=== PATIENT | female | born 1985 | race Caucasian/White ===

== ENCOUNTER 2019-12-08 10:25 | Emergency (ER) | payer OTHER ==
[~2019-12-08] VITALS: Ht 167.6 cm; Wt 72.2 kg
[2019-12-08 10:41] VITALS: BP 116/74
--- NOTE | 2019-12-08 10:55 | PHYS DOC ---
Past History Past Medical History: No Pertinent History Past Surgical History: Tonsillectomy, Other Additional Past Surgical Histo: nasal sx in august Smoking: Non-smoker Alcohol Use: None Drug Use: None General Adult EDM: Chief Complaint: SORE THROAT HPI: HPI: 34 year old female presents with 1 week history of URI symptoms including right ear pain, sore throat and "low grade fever". Denies known sick contacts. Reports history or prior tonsillectomy. Denies . Denies known exposure to COVID-19. Review of Systems: Review of Systems: Constitutional: Reports fever, chills, and generalized malaise Eyes: Denies redness or eye pain HENT: Denies nasal congestion; reports sore throat and right ear pain Respiratory: Denies cough or shortness of breath Cardiovascular: Denies chest pain or palpitations GI: Denies abdominal pain, nausea, or vomiting : Denies dysuria or hematuria Musculoskeletal: Denies back pain or joint pain Integument: Denies rash or skin lesions Neurologic: Denies headache, focal weakness or sensory changes Complete systems were reviewed and found to be within normal limits, except as documented in this note. Current Medications: Current Meds: Current Medications Medications (Trade) Dose Ordered Sig/Beau Start Time Stop Time Status Last Admin Dose Admin Dexamethasone (Decadron) 10 mg 1X ONCE 12/08/19 11:00 12/08/19 11:01 UNV Allergies: Allergies: Allergies Coded Allergies Type Severity Reaction Last Updated Verified No Known Drug Allergies 12/08/19 No Physical Exam: PE: Constitutional: Well developed, well nourished, no acute distress, non-toxic appearance HENT: Normocephalic, atraumatic, oropharynx moist, pharynx erythematous, tonsils post-surgical, TMs clear bilaterally, external canals normal Eyes: Conjunctiva normal, no discharge Neck: Normal range of motion, no tenderness, supple, no meningeal signs Lungs & Thorax: No respiratory distress, equal chest rise and fall Skin: Warm, dry, no erythema, no rash Extremities: No tenderness, ROM intact, no edema Neurologic: Alert and oriented X 3, no focal deficits noted Psychologic: Affect normal, judgment normal Current Patient Data: Vital Signs: Vital Signs Date Time Temp Pulse Resp B/P (MAP) Pulse Ox O2 Delivery O2 Flow Rate FiO2 12/08/19 10:41 98.6 84 18 116/74 (84) 100 EKG: EKG: [] Radiology/Procedures: Radiology/Procedures: [] Course & Med Decision Making: Course & Med Decision Making Pertinent Lab studies reviewed. (See chart for details) Patient presents with 1 week history of sore throat, "low grade fever", and right ear pain. Afebrile upon arrival. Denies known COVID-19 exposure. Rapid strep negative. COVID testing obtained and pending. Symptomatic treatment provided. Patient stable for discharge with outpatient follow-up with PCP. Discussed findings and plan with patient and family, who acknowledge understanding and agreement. Tessaon Disclaimer: [email or web address] Disclaimer: This electronic medical record was generated, in whole or in part, using a voice recognition dictation system. Departure Departure: Impression: Primary Impression: URI (upper respiratory infection) Qualified Codes: J06.9 - Acute upper respiratory infection, unspecified Additional Impressions: Otalgia, right ear Suspected 2019 novel coronavirus infection Disposition: HOME/RESIDENCE PRIOR TO ADM Condition: STABLE Referrals: GLORIA DOS SANTOS DO (PCP) Patient Instructions: Otalgia, Upper Respiratory Infection, Adult, [id number] Additional Instructions: You have been tested for or diagnosed with COVID-19. It is an infection caused by a new type of coronavirus. COVID-19 will cause cold-like or mild flu symptoms in most. It can cause more severe symptoms like problems breathing in some. There is no treatment for COVID-19. The body will clear the infection over time. Self-care will help to ease discomfort. Steps to Take: Self-Care Rest as needed. Healthy habits may help you feel better. Steps include: Choose healthy foods including fruits and vegetables. Drink water throughout the day. Get plenty of sleep each night. If you smoke, try to quit. It may ease breathing. Avoid alcohol. Keep Others Healthy The virus can spread to others. Droplets are released every time you sneeze or cough. The droplets can get into the mouth, nose, or eyes of people near you and lead to infection. To lower the chances of spreading COVID-19 to others: Stay at home until your doctor has said it is safe to leave. If you tested positive this will mean staying isolated until both of the following are true: At least 7 days have passed since the start of illness. You are free of fever for at least 72 hours without the use of medicine. During this time: - Avoid public areas, events, or transportation. Do not return to work or school until your doctor has said it is safe to do so. - Call ahead if you need to go to a medical center. Let them know you may have COVID-19. It will help them guide you where to go. They may also ask you to wear a facemask when you come to the office. - If you call for emergency medical services, let them know you may have COVID- 19. While at home: - Try to avoid close contact with others. Stay about 6 feet away. - If possible, spend most of your time in a separate room from others. - Use a face mask if you will be in close contact with others such as sharing a room or vehicle. - Have someone wipe down common surfaces in the home. Use household adhesive bandage making operator every day on areas like doorknobs, counters, or sinks. - Cough or sneeze into a tissue. Throw the tissue away right after use. If a tissue is not available, cough or sneeze into your elbow. - Wash your hands often. Wash them after sneezing or coughing. Use soap and water and wash for at least 20 seconds. Alcohol based hand carbonating stone cleaner can be used if soap and water is not available. - Do not prepare food for others. Avoid sharing personal items like forks, spoons, or toothbrushes. - Avoid close contact with pets while you are sick. There is no evidence of the virus passing to pets. This is a safety step until more is known about this virus. Isolation can be frustrating. Social interaction can help. Keep in touch with friends and family through phone and tech options. You can still interact with others in your home, just keep a safe distance of about 6 feet. Follow-up: Your doctors office will check in with you to see if there are any changes in your health. You may be asked to keep track of symptoms to share with them. They will also let you know when you are clear to be in public again. Problems to Look Out For: Contact your doctor if your recovery is not going as you expect. Get emergency care if you have problems such as: - Trouble breathing - Nonstop chest pain or pressure - Changes in awareness, confusion, or problems waking - Lips or face have bluish color - Worsening of symptoms If you think you have an emergency, call for emergency medical services right away. As taken from [facility] Justification of Admission: Justification of Admission: Justification of Admission Dx: N/A COVID-19 Assessment COVID-19 Patient Risks: Age 65 or older: No Sign of co-morbidity: No Exp to person + for COVID: No Exp to PUI: No Travel from affected area: No Lower respiratory symptoms: No Fever: Yes PPE Use: Full PPE with N95 mask or PAPR: Yes NICHOL REYES DO Dec 08, 2019 10:55
[2019-12-08] MEDS ORDERED: DEXAMETHASONE 4 MG TABLET ONE (10:56)
[2019-12-08] MEDS ORDERED: DEXAMETHASONE 4 MG TABLET PO ONE (11:00)
--- NOTE | 2019-12-17 16:06 | NUR ---
IP: notified patient of COVID-19 result.
== END 2019-12-08 11:30 | disposition home or self-care (01) ==
LOC: ER 10:25
DX: J06.9 Acute upper respiratory infection, unspecified (principal); H92.01 Otalgia, right ear; Z20.828 Contact with and (suspected) exposure to other viral communicable diseases
CPT/HCPCS: 87070; 87880; 99283; C9803; J8540; U0003